=== PATIENT | female | born 1990 | race Caucasian/White ===

== ENCOUNTER 2016-09-16 11:40 | Emergency (ER) | payer OTHER ==
[~2016-09-16] VITALS: Ht 152.4 cm; Wt 51.4 kg
[2016-09-16 11:50] VITALS: TEMP 37.3; Ht 152.4 cm; Wt 51.4 kg
[2016-09-16] MEDS ORDERED: KETOROLAC TROMETHAMINE 30 MG/ML VIAL IV STA (12:49)
[2016-09-16] MEDS ORDERED: SODIUM CHLORIDE 0.9% 1000ML 1,000 ML IV STA (12:49)
[2016-09-16] MEDS ORDERED: ONDANSETRON INJ 2 MG/ML 2 ML VIAL IV STA (12:49)
--- NOTE | 2016-09-16 12:52 | EMERGENCY ROOM VISIT NOTE ---
History Report prepared by Aly: Pancho Peñaloza Under the Supervision of: Dr. Jerson Rizo M.D. First contact with patient: 12:33 Chief Complaint: FLANK PAIN Stated Complaint: LEFT FLANK PAIN, UTI SYMPTOMS History of Present Illness The patient is a 26 year old female with a history of UTI and kidney stones who presents to the Emergency Room with complaints of persistent left flank pain that started an hour ago. She says that this does not feel like kidney stones, but she thinks she has a UTI. The patient states that the left flank pain radiates into her front and back. She is currently on her period, so she denies chance of . She has not taken anything for the pain. Source of History: patient Onset: An hour ago Position: other (left flank) Quality: other (pain) Timing: other (persistent) Associated Symptoms: + abdominal pain (left), + back pain (left) Note: Associated symptoms: Left flank pain radiates to front and back. Review of Systems See HPI for pertinent positives & negatives. A total of 10 systems reviewed and were otherwise negative. Past Medical & Surgical Medical Problems: (1) Calculus Of Kidney (2) Chronic Tonsillitis (3) Deliver-Single Liveborn (4) Personal History Of Urinary Calculi Surgical Problems: (1) H/O wisdom tooth extraction (2) History of tonsillectomy (3) Previous section Family History Cancer Social History Smoking Status: Current Every Day Smoker Alcohol Use: none Marital Status: in relationship Housing Status: lives with family Occupation Status: employed, student Current/Historical Medications Scheduled Doxycycline Monohydrate (Monodox), 100 MG PO BID Allergies Coded Allergies: No Known Allergies (Verified , 05/14/14) Physical Exam Vital Signs Date Time Temp Pulse Resp B/P (MAP) Pulse Ox O2 Delivery O2 Flow Rate FiO2 09/16/16 16:42 78 16 115/67 95 Room Air 09/16/16 15:54 69 16 90/53 98 Room Air 09/16/16 13:42 74 19 107/76 100 Room Air 09/16/16 13:14 81 09/16/16 11:50 37.3 96 20 107/67 93 Room Air Physical Exam GENERAL: Patient is a healthy-appearing well-nourished 26 year old female. HEAD: Normocephalic atraumatic EYES: Ocular movements intact pupils equal and react to light OROPHARYNX mucous membranes are moist no exudates present no erythema or edema present NECK: Supple no nuchal rigidity CHEST: Good equal expansion LUNGS: Clear and equal to auscultation CARDIAC: Normal S1 and S2 ABDOMEN: Soft nontender no guarding BACK: No CVA tenderness EXTREMITIES: No pain upon palpation normal muscle strength in all groups no clubbing cyanosis or edema NEURO: Patient is following commands and answering questions appropriately. Alert and oriented x3 Cranial Nerves 2-12 grossly intact Medical Decision & Procedures ER Provider Diagnostic Interpretation: Radiology results as stated below per my review and radiologist interpretation: RENAL ULTRASOUND HISTORY: Flank pain Pt c/o Rt sided flank pain COMPARISON: 05/07/2014 FINDINGS: Right kidney: Maximum dimension 10.2 cm. No evidence for hydronephrosis small stable right renal cyst Left kidney: Maximum dimension 10.0 cm. No evidence for hydronephrosis Bladder: No bladder wall thickening. The bilateral ureteral jets were identified. IMPRESSION: Negative study . Small stable right renal cyst Electronically signed by: Isael Foley M.D. 09/16/2016 3:18 PM Dictated Date/Time: 09/16/2016 3:14 PM KUB CLINICAL HISTORY: Left flank pain COMPARISON STUDY: 05/07/2014 FINDINGS: There is a minor lumbar spinal curvature convex to the left. There is an S1 spina bifida occulta. As no pathologic bowel dilatation. No urinary tract calculi are visualized on conventional radiographic imaging. There is a stable right pelvic basin calcification, likely representing a phlebolith. IMPRESSION: 1. Unremarkable bowel gas pattern 2. No calculi identified Electronically signed by: Roberto Carlos Wolf M.D. 09/16/2016 2:09 PM Dictated Date/Time: 09/16/2016 2:08 PM Laboratory Results 09/16/16 12:50 Red Blood Count 4.78, Mean Corpuscular Volume 89.7, Mean Corpuscular Hemoglobin 31.8, Mean Corpuscular Hemoglobin Concent 35.4, Mean Platelet Volume 9.6, Neutrophils (%) (Auto) 69.6, Lymphocytes (%) (Auto) 23.1, Monocytes (%) (Auto) 6.1, Eosinophils (%) (Auto) 0.9, Basophils (%) (Auto) 0.3, Neutrophils # (Auto) 4.43, Lymphocytes # (Auto) 1.47, Monocytes # (Auto) 0.39, Eosinophils # (Auto) 0.06, Basophils # (Auto) 0.02 09/16/16 12:50 Test 09/16/16 12:45 09/16/16 12:50 Urine Color YELLOW Urine Appearance CLEAR (CLEAR) Urine pH 7.0 (4.5-7.5) Urine Specific Proctor 1.017 (1.000-1.030) Urine Protein NEG (NEG) Urine Glucose (UA) NEG (NEG) Urine Ketones NEG (NEG) Urine Occult Blood NEG (NEG) Urine Nitrite NEG (NEG) Urine Bilirubin NEG (NEG) Urine Urobilinogen NEG (NEG) Urine Leukocyte Esterase NEG (NEG) Urine Test NEG (NEG) White Blood Count 6.37 K/uL (4.8-10.8) Red Blood Count 4.78 M/uL (4.2-5.4) Hemoglobin 15.2 g/dL (12.0-16.0) Hematocrit 42.9 % (37-47) Mean Corpuscular Volume 89.7 fL (80-100) Mean Corpuscular Hemoglobin 31.8 pg (25-34) Mean Corpuscular Hemoglobin Concent 35.4 g/dl (32-36) Platelet Count 313 K/uL (130-400) Mean Platelet Volume 9.6 fL (7.4-10.4) Neutrophils (%) (Auto) 69.6 % Lymphocytes (%) (Auto) 23.1 % Monocytes (%) (Auto) 6.1 % Eosinophils (%) (Auto) 0.9 % Basophils (%) (Auto) 0.3 % Neutrophils # (Auto) 4.43 K/uL (1.4-6.5) Lymphocytes # (Auto) 1.47 K/uL (1.2-3.4) Monocytes # (Auto) 0.39 K/uL (0.11-0.59) Eosinophils # (Auto) 0.06 K/uL (0-0.5) Basophils # (Auto) 0.02 K/uL (0-0.2) RDW Standard Deviation 41.8 fL (36.4-46.3) RDW Coefficient of Variation 12.7 % (11.5-14.5) Immature Granulocyte % (Auto) 0.0 % Immature Granulocyte # (Auto) 0.00 K/uL (0.00-0.02) Anion Gap 8.0 mmol/L (3-11) Est Creatinine Clear Calc Drug Dose 85.8 ml/min Estimated GFR () 134.9 Estimated GFR (Non- 116.4 BUN/Creatinine Ratio 13.8 (10-20) Calcium Level 9.7 mg/dl (8.5-10.1) Total Bilirubin 0.4 mg/dl (0.2-1) Direct Bilirubin 0.1 mg/dl (0-0.2) Aspartate Amino Transf (AST/SGOT) 13 U/L (15-37) Alanine Aminotransferase (ALT/SGPT) 22 U/L (12-78) Alkaline Phosphatase 76 U/L (45-117) Total Protein 8.5 gm/dl (6.4-8.2) Albumin 4.6 gm/dl (3.4-5.0) Lipase 106 U/L (73-393) Labs reviewed by ED physician. Medications Administered Medications (Trade) Dose Ordered Sig/Makayla Route Start Time Stop Time Status Last Admin Dose Admin Ketorolac Tromethamine (Toradol Inj) 30 mg NOW STAT IV 09/16/16 12:49 09/16/16 12:53 DC 09/16/16 13:05 30 MG Sodium Chloride 1,000 ml @ 999 mls/hr Q1H1M STAT IV 09/16/16 12:49 09/16/16 13:49 DC 09/16/16 12:49 999 MLS/HR Ondansetron HCl (Zofran Inj) 4 mg NOW STAT IV 09/16/16 12:49 09/16/16 12:53 DC 09/16/16 13:05 4 MG Hydromorphone HCl (Dilaudid Inj) 1 mg NOW STAT IV 09/16/16 14:27 09/16/16 14:28 DC 09/16/16 14:27 1 MG Metoclopramide HCl (Reglan Inj) 10 mg NOW STAT IV 09/16/16 14:27 09/16/16 14:28 DC 09/16/16 14:27 10 MG Ceftriaxone Sodium (Rocephin Inj) 1 gm NOW STAT IV 09/16/16 15:57 09/16/16 15:59 DC 09/16/16 16:07 1 GM Azithromycin (Zithromax Tab) 1,000 mg NOW STAT PO 09/16/16 15:57 09/16/16 15:59 DC 09/16/16 16:07 1,000 MG ED Course 1247: Past medical records reviewed. The patient was evaluated in room C9. A complete history and physical examination was performed. 1249: Ordered Zofran Inj 4 mg IV, NSS 1000 ml @ 999 mls/hr IV, Toradol Inj 30 mg IV. 1427: Ordered Reglan Inj 10 mg IV, Dilaudid Inj 1 mg IV. 1557: Ordered Zithromax Tab 1000 mg PO, Rocephin Inj 1 gm IV. 1600: Upon reexamination the patient is resting comfortably. I discussed results and treatment plan with the patient. She verbalizes agreement and understanding. The patient is ready for discharge. Medical Decision Differential diagnosis: Etiologies such as appendicitis, diverticulitis, PUD, biliary pathology, UTI, pancreatitis, obstruction, mesenteric ischemia, aortic pathology, infections, inflammatory bowel disease, renal colic, as well as others were entertained. Medication Reconciliation: I attest that I have personally reviewed the patient' s current medication list Blood Pressure Screening: Patient was found to have normal blood pressure on screening and does not require follow up. This is a 26-year-old female who presents emergency department complaining of left-sided flank pain. Serial abdominal examinations were performed on the patient in the emergency department and at no time did the patient exhibit a surgical abdomen. An IV was established, the patient is given normal saline bolus, Toradol. Repeat examination revealed improvement in the patient's symptoms. I believe based on the patient's exam as well as the fact that the patient does not have an elevation in her white blood cell count that we can forego a CT scan of the abdomen. The patient was sent for an ultrasound of her kidneys which was found to be normal. She also has a normal KUB. I believe based on these findings at the patient can be safely discharged home. The patient is complaining of urinary complaints therefore she was given Rocephin and azithromycin in the emergency department. I will continue her on doxycycline pending urine culture results. Patient was in agreement with the treatment plan. Impression Primary Impression: Urinary tract infection symptoms Scribe Attestation The scribe's documentation has been prepared under my direction and personally reviewed by me in its entirety. I confirm that the note above accurately reflects all work, treatment, procedures, and medical decision making performed by me. Departure Information Dispostion Home / Self-Care Prescriptions Doxycycline Monohydrate (Monodox) 100 Mg Cap 100 MG PO BID for 14 Days, #28 CAP Prov: Jerson Rizo MD 09/16/16 Referrals No Doctor, Assigned (PCP) Forms HOME CARE DOCUMENTATION FORM, IMPORTANT VISIT INFORMATION, School Instructions, Work Instructions Patient Instructions Abdominal Pain, Diet Clear Liquid Dc, ED Abdominal Pain Unkn Cause, My [facility] Additional Instructions Clear liquid diet next 48 hours Culture results are usually available in approx 48 hours You have been examined and treated today on an emergency basis only. This is not a substitute for, or an effort to provide, complete comprehensive medical care. It is impossible to recognize and treat all injuries or illnesses in a single emergency department visit. It is therefore important that you follow up closely with your PCP. Call as soon as possible for an appointment. Thank you for your time and consideration. I look forward to speaking with you again soon. Please don't hesitate to call us if you have any questions.
[2016-09-16 13:11] LABS: BASO % 0.3 %; BASO ABS # 0.02 K/uL (0-0.2); COMPLETE YES; EOS % 0.9 %; HEMATOCRIT 42.9 % (37-47); LYMPH % 23.1 %; LYMPH ABS # 1.47 K/uL (1.2-3.4); MEAN CELL VOLUME 89.7 fL (80-100); MEAN CORPUSCULAR HEMOGLOBIN 31.8 pg (25-34); MEAN CORPUSCULAR HGB CONC 35.4 g/dl (32-36); MEAN PLATELET VOLUME 9.6 fL (7.4-10.4); MONO % 6.1 %; NEUT % 69.6 %; PLATELET COUNT 313 K/uL (130-400); RED BLOOD COUNT 4.78 M/uL (4.2-5.4); WHITE BLOOD COUNT 6.37 K/uL (4.8-10.8)
[2016-09-16 13:34] LABS: URINE APPEARANCE CLEAR (CLEAR); URINE BILIRUBIN NEG (NEG); URINE COLOR YELLOW; URINE NITRITE NEG (NEG); URINE SPECIFIC GRAVITY 1.017 (1.000-1.030); UROBILINOGEN NEG (NEG)
[2016-09-16 13:34] LABS: BUN/CREATININE RATIO 13.8 (10-20); CALCIUM 9.7 mg/dl (8.5-10.1); CREATININE 0.72 mg/dl (0.60-1.20)
[2016-09-16 13:39] LABS: MANUAL MICROSCOPIC REQUIRED? NO; REVIEW REQ? NO; ZZUR CULT IF INDIC CLEAN CATCH NO
--- NOTE | 2016-09-16 14:10 | DIAGNOSTIC IMAGING REPORT ---
KUB CLINICAL HISTORY: Left flank pain COMPARISON STUDY: 05/07/2014 FINDINGS: There is a minor lumbar spinal curvature convex to the left. There is an S1 spina bifida occulta. As no pathologic bowel dilatation. No urinary tract calculi are visualized on conventional radiographic imaging. There is a stable right pelvic basin calcification, likely representing a phlebolith. IMPRESSION: 1. Unremarkable bowel gas pattern 2. No calculi identified Electronically signed by: Roberto Carlos Wolf M.D. 09/16/2016 2:09 PM Dictated Date/Time: 09/16/2016 2:08 PM
[2016-09-16] MEDS ORDERED: METOCLOPRAMIDE HCL INJ 5 MG/ML 2 ML VIAL IV STA (14:27)
[2016-09-16] MEDS ORDERED: HYDROmorphone INJ 1 MG/ML SYR IV STA (14:27)
--- NOTE | 2016-09-16 15:19 | DIAGNOSTIC IMAGING REPORT ---
RENAL ULTRASOUND HISTORY: Flank pain Pt c/o Rt sided flank pain COMPARISON: 05/07/2014 FINDINGS: Right kidney: Maximum dimension 10.2 cm. No evidence for hydronephrosis small stable right renal cyst Left kidney: Maximum dimension 10.0 cm. No evidence for hydronephrosis Bladder: No bladder wall thickening. The bilateral ureteral jets were identified. IMPRESSION: Negative study . Small stable right renal cyst Electronically signed by: Isael Foley M.D. 09/16/2016 3:18 PM Dictated Date/Time: 09/16/2016 3:14 PM
[2016-09-16] MEDS ORDERED: CEFTRIAXONE SOD INJ 1 GM ADDVIAL IV STA (15:57)
[2016-09-16] MEDS ORDERED: AZITHROMYCIN 250 MG TAB PO STA (15:57)
[2016-09-16] MEDS ORDERED: DOXY100C76 PO (15:59)
[2016-09-16 16:42] VITALS: BP 115/67; PULSE 78; O2SAT 95
== END 2016-09-16 16:44 | disposition home or self-care (01) ==
LOC: C.EDB 11:42 → C.EDC 16:44
DX: R10.12 Left upper quadrant pain (principal); R10.32 Left lower quadrant pain; M54.9 Dorsalgia, unspecified; J35.01 Chronic tonsillitis; F17.200 Nicotine dependence, unspecified, uncomplicated; N28.1 Cyst of kidney, acquired; Z87.440 Personal history of urinary (tract) infections; Z87.442 Personal history of urinary calculi

== ENCOUNTER → 2016-12-03 | Outpatient (CLI) | payer OTHER | END | disposition home or self-care (01) | LOC: C.PATHSPEC 14:39 | PROVIDERS: ATTEND Obstetrics & Gynecology | DX: R87.820 Cervical low risk human papillomavirus (HPV) DNA test positive (principal) ==

== ENCOUNTER → 2016-12-03 | Outpatient (CLI) | payer OTHER | END | disposition home or self-care (01) | LOC: C.PAPS 16:07 | PROVIDERS: ATTEND Obstetrics & Gynecology | DX: R87.820 Cervical low risk human papillomavirus (HPV) DNA test positive (principal) ==

== ENCOUNTER → 2017-01-08 | Outpatient (CLI) | payer OTHER ==
[2017-01-14 14:39] LABS: HEPATITIS C RNA TMA QUAL Detected
== END | disposition home or self-care (01) ==
LOC: C.LAB 11:23
PROVIDERS: ATTEND Obstetrics & Gynecology
DX: Z20.2 Contact with and (suspected) exposure to infections with a predominantly sexual mode of transmission (principal)

== ENCOUNTER → 2017-05-18 | Outpatient (CLI) | payer OTHER | END | disposition home or self-care (01) | LOC: C.PAPS 15:38 | PROVIDERS: ATTEND Obstetrics & Gynecology | DX: R87.820 Cervical low risk human papillomavirus (HPV) DNA test positive (principal) ==

== ENCOUNTER → 2017-07-20 | Outpatient (CLI) | payer OTHER | END | disposition home or self-care (01) | LOC: C.PAPS 14:28 | PROVIDERS: ATTEND Obstetrics & Gynecology | DX: R87.820 Cervical low risk human papillomavirus (HPV) DNA test positive (principal); R87.610 Atypical squamous cells of undetermined significance on cytologic smear of cervix (ASC-US) ==